=== PATIENT | female | born 1955 | race Caucasian/White ===

== ENCOUNTER 2019-02-11 05:54 | Inpatient (IN) | payer OTHER ==
[2019-01-29 15:54] VITALS: BMI 33.5
[2019-02-11] MEDS ORDERED: oxyCODONE HCL 10 MG SUSTAINED ACTING TABLET PO ONE (07:02)
[2019-02-11] MEDS ORDERED: GABAPENTIN 300 MG CAPSULE (FP) PO ONE (07:02)
[2019-02-11] MEDS ORDERED: TRANEXAMIC ACID 1000 MG/10 ML VIAL IVPUSH ONE (07:02)
[2019-02-11] MEDS ORDERED: CELECOXIB 200 MG CAPSULE PO ONE (07:02)
[2019-02-11] MEDS ORDERED: CEFAZOLIN 2 GM in DEXTROSE 5%-WATER - 50 ML IVPB ONE (07:02)
[2019-02-11] MEDS ORDERED: PANTOPRAZOLE 40 MG TABLET (FP) PO ONE (07:03)
[2019-02-11] MEDS ORDERED: BUPIVACAINE LIPOSOME/PF (EXPAREL) 266 MG/20 ML VIAL ONE (07:29)
[2019-02-11] MEDS ORDERED: MIDAZOLAM HCL 2 MG/2 ML SINGLE DOSE VIAL ONE (07:29)
[2019-02-11] MEDS ORDERED: BUPIVACAINE HCL/PF (5 MG/ML) 30 ML VIAL IJ ONE (07:30)
[2019-02-11] MEDS ORDERED: VANCOMYCIN 1,000 MG VIAL (RESTRICTED TO ID ONLY) ONE (07:46)
[2019-02-11] MEDS ORDERED: ceFAZolin SODIUM 1 GM VIAL ONE ×2 (07:46→08:49)
--- NOTE | 2019-02-11 07:48 | HP ---
Admitting History and Physical - Admission Chief Complaint: left knee osteoarthritis x years History of Present Illness: 63 year old female presents today in regard to her left knee. Longstanding history of left knee osteoarthritis. Patient complains of pain, difficulty ambulating, limited ROM and difficulty completing activities of daily living. Patient has failed conservative treatment options including PO medications, injections, exercise programs and activity modifications. At this point, patient would like to proceed with surgical intervention - left total knee arthroplasty, MAKOplasty. History Source: Patient - Past Medical History Cardiovascular: Yes: CAD, HTN, Hyperlipdemia Pulmonary: Yes: Asthma Gastrointestinal: Yes: GERD Rheumatology: Yes: Gout ENT: Yes: Other (seasonal allergies) - Past Surgical History Additional Past Surgical History: See written history & physical. - Smoking History Smoking history: Former smoker Have you smoked in the past 12 months: No If you are a former smoker, when did you quit?: 2010 - Alcohol/Substance Use Hx Alcohol Use: No Home Medications - Allergies Allergies/Adverse Reactions: Allergies Allergy/AdvReac Type Severity Reaction Status Date / Time moxifloxacin [From Avelox] Allergy Severe Difficulty Verified 01/29/19 15:16 Breathing mushroom Allergy Severe Rash Verified 01/29/19 15:17 Penicillins Allergy Unknown Verified 01/29/19 15:16 - Home Medications Home Medications: Ambulatory Orders Aspirin [Ecotrin] 81 mg PO HS 01/29/19 Bisoprolol Fumarate [Zebeta (Nf) -] 10 mg PO DAILY 01/29/19 Clopidogrel Bisulfate [Plavix] 75 mg PO DAILY 01/29/19 Colchicine 0.6 mg PO HS 01/29/19 Ezetimibe [Zetia] 10 mg PO HS 01/29/19 Fluticasone/Vilanterol [Breo Ellipta 200-25 Mcg INH] 1 each IH DAILY 01/29/19 Isosorbide Mononitrate [Imdur -] 60 mg PO DAILY 01/29/19 Montelukast Sodium [Singulair] 10 mg PO HS 01/29/19 Oxymetazoline HCl [Nasal [place]] 30 ml NS DAILY PRN 01/29/19 Pantoprazole Sodium [Protonix] 40 mg PO DAILY 01/29/19 Review of Systems - Review of Systems Musculoskeletal: reports: Crepitus (left knee), Decreased ROM (left knee), Joint Pain (left knee), Joint Swelling (left knee) Physical Examination Vital Signs: Vital Signs Temperature 98.4 F 02/11/19 06:52 Pulse Rate 58 L 02/11/19 06:52 Respiratory Rate 18 02/11/19 06:52 Blood Pressure 119/66 02/11/19 06:52 O2 Sat by Pulse Oximetry (%) Constitutional: Yes: Well Nourished, No Distress Eyes: Yes: Conjunctiva Clear HENT: Yes: Atraumatic Neck: Yes: Supple Cardiovascular: Yes: Regular Rate and Rhythm Respiratory: Yes: Regular Gastrointestinal: Yes: Soft ...Rectal Exam: Yes: Deferred Musculoskeletal: Yes: Joint Stiffness (left knee), Joint Swelling (left knee) Assessment/Plan 63 year old female presents today in regard to her left knee. Longstanding history of left knee osteoarthritis. Patient complains of pain, difficulty ambulating, limited ROM and difficulty completing activities of daily living. Patient has failed conservative treatment options including PO medications, injections, exercise programs and activity modifications. At this point, patient would like to proceed with surgical intervention - left total knee arthroplasty, MAKOplasty. Pros, cons, risks, benefits and alternatives of a left total knee arthroplasty, MAKOplasty were discussed with the patient at length. Patient confirms her understanding and consents to proceed with a left total knee arthroplasty, MAKOplasty.
[2019-02-11] MEDS ORDERED: PROPOFOL 20 ML ONE ×4 (08:02→11:17)
[2019-02-11] MEDS ORDERED: SUCCINYLCHOLINE CHLORIDE 200 MG/10 ML VIAL ONE (08:02)
[2019-02-11] MEDS ORDERED: ONDANSETRON 4 MG/2 ML VIAL ONE (08:49)
[2019-02-11] MEDS ORDERED: DEXAMETHASONE SOD PHOSPHATE 4 MG/1 ML VIAL ONE (08:49)
[2019-02-11] MEDS ORDERED: TRANEXAMIC ACID 1000 MG/10 ML VIAL ONE (09:01)
[2019-02-11] MEDS ORDERED: VANCOMYCIN 1,000 MG VIAL (RESTRICTED TO ID ONLY) IVPB ONE ×2 (09:16→10:44)
[2019-02-11] MEDS ORDERED: TRANEXAMIC ACID 1000 MG/10 ML VIAL IVPB ONE ×2 (09:17→10:44)
[2019-02-11] MEDS ORDERED: KETOROLAC TROMETHAMINE 30 MG/1 ML VIAL ONE (11:51)
[2019-02-11] MEDS ORDERED: traMADol HCL 50 MG TABLET ONE (11:51)
[2019-02-11] MEDS ORDERED: ACETAMINOPHEN INJECTION 100 ML IVPB ONE (11:52)
[2019-02-11] MEDS ORDERED: KETOROLAC TROMETHAMINE 30 MG/1 ML VIAL IVPUSH ONE (11:55)
--- NOTE | 2019-02-11 11:56 | OP ---
Operative Note - Note: Operative Date: 02/11/19 Pre-Operative Diagnosis: Left knee OA Operation: Left DEBORAH TKA Post-Operative Diagnosis: Same as Pre-op Surgeon: Roman Blunt Embroidery Worker: Tanvi Diana Anesthesia: Spinal Estimated Blood Loss (mls): 100
[2019-02-11] MEDS ORDERED: ONDANSETRON 4 MG/2 ML VIAL IVPUSH PRN ×2 (11:58→12:13)
[2019-02-11] MEDS ORDERED: PROMETHAZINE HCL 25 MG/1 ML VIAL IVPUSH PRN (11:58)
[2019-02-11] MEDS ORDERED: oxyCODONE HCL 5 MG TABLET PO PRN (11:58)
[2019-02-11] MEDS ORDERED: ACETAMINOPHEN 325 MG TABLET (FP) PO SCH (12:00)
[2019-02-11] MEDS ORDERED: ACETAMINOPHEN 1000 MG/100 ML VIAL (NON FORMULARY) IVPB ONE ×2 (12:00→12:12)
[2019-02-11] MEDS ORDERED: MAGNESIUM HYDROX 2400MG/30ML ORAL SUSPENSION 30 ML CUP PO PRN (12:13)
[2019-02-11] MEDS ORDERED: traMADol HCL 50 MG TABLET PO ONE (12:15)
[2019-02-11] MEDS ORDERED: LACTATED RINGERS SOLUTION 1,000 ML IV SCH (12:15)
[2019-02-11] MEDS: ACETAMINOPHEN 325 MG TABLET (FP) PO SCH (18:09)
[2019-02-11] MEDS: KETOROLAC TROMETHAMINE 30 MG/1 ML VIAL IVPUSH SCH ×2 (18:10→23:59)
[2019-02-11] MEDS: traMADol HCL 50 MG TABLET PO SCH (18:11)
[2019-02-11] MEDS: CEFAZOLIN 2 GM/D5W 2 GM/50 ML ML IVPB SCH (18:57)
[2019-02-11] MEDS ORDERED: DEXAMETHASONE SOD PHOSPHATE 10 MG/1 ML VIAL IVPB ONE (20:00)
[2019-02-11] MEDS: COLCHICINE 0.6 MG TABLET (FP) PO SCH (21:01)
[2019-02-11] MEDS: CELECOXIB 200 MG CAPSULE PO SCH (21:01)
[2019-02-11] MEDS: SENNOSIDES/DOCUSATE COMBO (SENNA PLUS) TABLET (UD) PO SCH (21:02)
[2019-02-11] MEDS: ASCORBIC ACID 500 MG TABLET (FP) PO SCH (21:02)
[2019-02-11] MEDS: GABAPENTIN 300 MG CAPSULE (FP) PO SCH (21:02)
[2019-02-11] MEDS: MONTELUKAST NA 10 MG TABLET PO SCH (21:02)
[2019-02-11] MEDS: RANITIDINE HCL 150 MG TABLET (FP) PO SCH (21:02)
[2019-02-11] MEDS: oxyCODONE HCL 10 MG SUSTAINED ACTING TABLET PO SCH (21:03)
[2019-02-11] MEDS: EZETIMIBE 10 MG TABLET (FP) PO SCH (21:03)
[2019-02-11] MEDS ORDERED: PATIENT'S OWN MEDICATION (NON-FORMULARY) (Colchicine [Colchicine] 0.6 MG) PO SCH (22:00)
[2019-02-12] MEDS: traMADol HCL 50 MG TABLET PO SCH ×3 (00:01→12:40)
[2019-02-12] MEDS: CEFAZOLIN 2 GM/D5W 2 GM/50 ML ML IVPB SCH (01:30)
[2019-02-12] MEDS: KETOROLAC TROMETHAMINE 30 MG/1 ML VIAL IVPUSH SCH (06:02)
[2019-02-12] MEDS: ACETAMINOPHEN 325 MG TABLET (FP) PO SCH ×4 (06:03→18:49)
[2019-02-12 07:56] LABS: ANION GAP 5 MMOL/L (8-16); BLOOD UREA NITROGEN 20 mg/dl (7-18); CALCIUM 9.3 mg/dl (8.5-10); CHLORIDE 105 mmol/L (98-107); CO2 25 mmol/L (21-32); CREATININE 0.7 mg/dl (0.55-1.3); GLUCOSE,RANDOM 134 mg/dl (74-106); POTASSIUM 4.6 mmol/L (3.5-5.1); SODIUM 135 mmol/L (136-145)
[2019-02-12 07:57] LABS: HEMOGLOBIN 11.9 GM/dl (10.7-15.3); MCH 29.9 pg (25.7-33.7); MCHC 34.1 g/dl (32.0-36.0); MEAN CELL VOLUME 87.8 fl (80-96); MEAN PLT VOLUME 10.4 fl (7.5-11.1); PLATELET COUNT 273 K/MM3 (134-434); RBC 3.99 M/mm3 (3.60-5.2); RDW 13.5 % (11.6-15.6); WHITE BLOOD COUNT 10.5 K/mm3 (4.0-10.8)
[2019-02-12] MEDS ORDERED: PANTOPRAZOLE 40 MG TABLET (FP) PO SCH (10:00)
[2019-02-12] MEDS: oxyCODONE HCL 10 MG SUSTAINED ACTING TABLET PO SCH (10:20)
[2019-02-12] MEDS: GABAPENTIN 300 MG CAPSULE (FP) PO SCH (10:20)
[2019-02-12] MEDS: ASCORBIC ACID 500 MG TABLET (FP) PO SCH ×2 (10:21→21:49)
[2019-02-12] MEDS: MULTIVITAMINS (DAILY MVI) TABLET (FP) PO SCH (10:21)
[2019-02-12] MEDS: RANITIDINE HCL 150 MG TABLET (FP) PO SCH ×2 (10:21→21:49)
[2019-02-12] MEDS: ISOSORBIDE MONONITRATE 60 MG TAB.SR.24H (FP) PO SCH (10:22)
[2019-02-12] MEDS: SENNOSIDES/DOCUSATE COMBO (SENNA PLUS) TABLET (UD) PO SCH ×2 (10:22→21:49)
[2019-02-12] MEDS: ASPIRIN 325 MG TABLET PO SCH (11:02)
[2019-02-12] MEDS: CLOPIDOGREL BISULFATE 75 MG TABLET (FP) PO SCH (11:02)
[2019-02-12] MEDS: PATIENT'S OWN MEDICATION (NON-FORMULARY) (Fluticasone/Vilanterol [Breo Ellipta 200-25 Mcg IH SCH (12:39)
[2019-02-12] MEDS: BISOPROLOL FUMARATE 10 MG PO SCH (12:39)
[2019-02-12] MEDS: CELECOXIB 200 MG CAPSULE PO SCH ×2 (12:40→21:49)
[2019-02-12] MEDS ORDERED: PT OWN MED DRAWER 7, Y5N ONE (12:46)
--- NOTE | 2019-02-12 15:51 | PN ---
Progress Note (short form) - Note Progress Note: S: Pt. oob in a chair. no c/o. Feels her leg is buckling while weight bearing O: VAS 0/10 A/P: POD#1 s/p left tkr with adductor canal block and selective tibial nerve block 1. knee instability: probably due to adductor canal block with exparel. Muscle tone should return in 2-3 days. Knee immobilizer while OOB, ambulating. 2. pain very well controlled. D/Cd oxycontin, gabapentin and tramadol
[2019-02-12] MEDS: COLCHICINE 0.6 MG TABLET (FP) PO SCH (21:49)
[2019-02-12] MEDS: MONTELUKAST NA 10 MG TABLET PO SCH (21:49)
[2019-02-12] MEDS: EZETIMIBE 10 MG TABLET (FP) PO SCH (21:50)
[2019-02-13] MEDS: ACETAMINOPHEN 325 MG TABLET (FP) PO SCH ×4 (02:58→18:11)
[2019-02-13] MEDS: MAG HYDROX/AL HYDROX/SIMETH 30 ML UNIT-DOSE CUP PO PRN (05:51)
[2019-02-13] MEDS: oxyCODONE HCL 5 MG TABLET PO PRN ×2 (05:52→09:14)
[2019-02-13 08:25] LABS: HEMATOCRIT 33.5 % (32.4-45.2); HEMOGLOBIN 10.9 GM/dl (10.7-15.3); MCH 28.6 pg (25.7-33.7); MCHC 32.5 g/dl (32.0-36.0); MEAN CELL VOLUME 87.9 fl (80-96); MEAN PLT VOLUME 9.6 fl (7.5-11.1); PLATELET COUNT 231 K/MM3 (134-434); RBC 3.81 M/mm3 (3.60-5.2); WHITE BLOOD COUNT 7.4 K/mm3 (4.0-10.8)
[2019-02-13] MEDS ORDERED: PT OWN MED DRAWER 7, Y5N ONE (09:10)
[2019-02-13] MEDS: RANITIDINE HCL 150 MG TABLET (FP) PO SCH ×2 (09:12→21:13)
[2019-02-13] MEDS: CELECOXIB 200 MG CAPSULE PO SCH ×2 (09:12→21:12)
[2019-02-13] MEDS: ASCORBIC ACID 500 MG TABLET (FP) PO SCH ×2 (09:13→21:13)
[2019-02-13] MEDS: MULTIVITAMINS (DAILY MVI) TABLET (FP) PO SCH (09:13)
[2019-02-13] MEDS: SENNOSIDES/DOCUSATE COMBO (SENNA PLUS) TABLET (UD) PO SCH ×2 (09:13→21:12)
[2019-02-13] MEDS: CLOPIDOGREL BISULFATE 75 MG TABLET (FP) PO SCH (09:14)
[2019-02-13] MEDS: ISOSORBIDE MONONITRATE 60 MG TAB.SR.24H (FP) PO SCH (09:14)
[2019-02-13] MEDS: BISOPROLOL FUMARATE 10 MG PO SCH (09:14)
[2019-02-13] MEDS: PATIENT'S OWN MEDICATION (NON-FORMULARY) (Fluticasone/Vilanterol [Breo Ellipta 200-25 Mcg IH SCH (09:14)
[2019-02-13] MEDS: ASPIRIN 325 MG TABLET PO SCH (09:14)
[2019-02-13] MEDS: COLCHICINE 0.6 MG TABLET (FP) PO SCH (21:12)
[2019-02-13] MEDS: MONTELUKAST NA 10 MG TABLET PO SCH (21:13)
[2019-02-13] MEDS: EZETIMIBE 10 MG TABLET (FP) PO SCH (21:13)
[2019-02-14] MEDS: ACETAMINOPHEN 325 MG TABLET (FP) PO SCH ×3 (00:11→06:20)
[2019-02-14] MEDS: MAG HYDROX/AL HYDROX/SIMETH 30 ML UNIT-DOSE CUP PO PRN (06:20)
[2019-02-14] MEDS: oxyCODONE HCL 5 MG TABLET PO PRN (07:15)
--- NOTE | 2019-02-14 08:35 | PN ---
Progress Note (short form) - Note Progress Note: Pt seen and examined. Doing well. Block resolving. Had large BM. Feels better AVSS Selected Entries 02/14/19 02/14/19 05:54 05:58 Temperature 97.7 F Pulse Rate 73 Respiratory 17 Rate Blood Pressure 133/64 O2 Sat by Pulse 98 Oximetry (%) Oxygen Delivery Room Air Method Laboratory Tests 02/12/19 02/12/19 02/13/19 07:06 07:06 07:35 WBC 10.5 7.4 Hgb 11.9 10.9 Hct 35.0 33.5 Plt Count 273 231 Sodium 135 L Potassium 4.6 Chloride 105 Carbon Dioxide 25 Anion Gap 5 L BUN 20 H Creatinine 0.7 Creat Clearance w eGFR 84.25 Random Glucose 134 H Calcium 9.3 Gen: NAD LLE: c/d/i, NVID A/P s/p L TKA, prolonged femoral block and motor weakness (resolving) D/C home today
--- NOTE | 2019-02-14 08:42 | DS ---
Physical Examination Vital Signs: Vital Signs Temperature 97.7 F 02/14/19 05:54 Pulse Rate 73 02/14/19 05:54 Respiratory Rate 17 02/14/19 05:54 Blood Pressure 133/64 02/14/19 05:54 O2 Sat by Pulse Oximetry (%) 98 02/14/19 05:58 Labs: CBC, BMP 02/13/19 07:35 02/12/19 07:06 Discharge Summary Reason For Visit: LEFT KNEE OSTEOARTHRITIS Current Active Problems Osteoarthritis of left knee (Acute) Procedures: Principal: left andrew TKA Hospital Course: Admitted for elective surgery. Procedure performed without complications. Pt received postoperative antibiotic prophylaxis and DVT ppx. Ambulated with physical therapy. Stable for discharge home with outpatient followup. Condition: Stable - Instructions Diet, Activity, Other Instructions: Dr. Blunt - Knee Replacement Instructions Keep the Aquacel dressing on until removed by Dr. Blunt in 10-14 days - it is antibacterial and waterproof and you can shower with it on. Call the office for a follow-up appointment with Dr. Blunt FridayFEBRUARY 24. [phone] Take one Aspirin 325mg daily for 6 weeks to prevent blood clots in your legs. After 6 weeks resume your preop dose of 81mg daily. Resume taking your Plavix as per your preop dose. Take one Pantoprazole 40mg daily for 6 weeks to protect against heartburn and ulcers. Take Cephalexin (antibiotic) 3x/day for 10 days to help prevent skin infection. Take a multivitamin, stool softener, and extra Vitamin C supplement daily. For pain: *Mild pain (1-3/10): Take 1 Tramadol tablet every 4 hours as needed. Moderate pain (4-6/10): Take 1 Tramadol tablet and 1 Percocet tablet every 4 hours as needed. Severe pain (7-10/10): Take 1 Tramadol tablet and 2 Percocet tablets every 4 hours as needed. Activity: You can put as much weight on the operative leg as you want. Right after you get home, there will be a physical therapist coming to your house to help you walk around and bend/straighten your knee. After your follow-up appointment, you will be sent for more intensive outpatient physical therapy which will include machines and equipment that the home therapist cannot bring to your house. Always use a walker or cane for balance and to prevent falls. Expect to see swelling/bruising from the operative site all the way down to your toes. Wear the compression stocking on the operative side during the day to minimize how much swelling there is in your foot/ankle. Don't wear the stocking at night. You don't have to wear a stocking on the other side. Disposition: [facility]NS/HOME HEALTH CARE - Home Medications Comprehensive Discharge Medication List: Ambulatory Orders RX: Bisoprolol Fumarate [Zebeta (Nf) -] 10 mg PO DAILY 01/29/19 RX: Clopidogrel Bisulfate [Plavix] 75 mg PO DAILY 01/29/19 RX: Colchicine 0.6 mg PO HS 01/29/19 RX: Ezetimibe [Zetia] 10 mg PO HS 01/29/19 RX: Fluticasone/Vilanterol [Breo Ellipta 200-25 Mcg INH] 1 each IH DAILY RX: Isosorbide Mononitrate [Imdur -] 60 mg PO DAILY 01/29/19 RX: Montelukast Sodium [Singulair] 10 mg PO HS 01/29/19 RX: Oxymetazoline HCl [Nasal [place]] 30 ml NS DAILY PRN 01/29/19 RX: Pantoprazole Sodium [Protonix] 40 mg PO DAILY 01/29/19 Oxycodone HCl/Acetaminophen [Percocet 5-325 mg Tablet] 1 - 2 tab PO Q4H PRN #60 tablet MDD 10 02/14/19 RX: Ascorbic Acid [Vitamin C -] 500 mg PO BID tablet 02/14/19 RX: Aspirin [ASA -] 325 mg PO DAILY@0800 tablet 02/14/19 RX: Cephalexin Monohydrate [Keflex -] 500 mg PO TID #30 capsule 02/14/19 RX: Multivitamins [Multivit ([facility] Formulary)] 1 tab PO DAILY tab 02/14/19 RX: Pantoprazole Sodium [Protonix -] 40 mg PO DAILY #40 tablet.ec 02/14/19 RX: Sennosides/Docusate Sodium [Pericolace -] 2 tablet PO BID tablet 02/14/19 RX: traMADol HCL [Ultram -] 50 mg PO Q4H PRN #42 tablet MDD 6 02/14/19
[2019-02-14] MEDS ORDERED: PT OWN MED DRAWER 7, Y5N ONE (09:55)
[2019-02-14] MEDS: CELECOXIB 200 MG CAPSULE PO SCH (09:57)
[2019-02-14] MEDS: ASPIRIN 325 MG TABLET PO SCH (09:59)
[2019-02-14] MEDS: PATIENT'S OWN MEDICATION (NON-FORMULARY) (Fluticasone/Vilanterol [Breo Ellipta 200-25 Mcg IH SCH (10:00)
[2019-02-14] MEDS: CLOPIDOGREL BISULFATE 75 MG TABLET (FP) PO SCH (10:00)
[2019-02-14] MEDS: BISOPROLOL FUMARATE 10 MG PO SCH (10:00)
[2019-02-14] MEDS: SENNOSIDES/DOCUSATE COMBO (SENNA PLUS) TABLET (UD) PO SCH (10:00)
[2019-02-14] MEDS: RANITIDINE HCL 150 MG TABLET (FP) PO SCH (10:01)
[2019-02-14] MEDS: ISOSORBIDE MONONITRATE 60 MG TAB.SR.24H (FP) PO SCH (10:01)
[2019-02-14] MEDS: MULTIVITAMINS (DAILY MVI) TABLET (FP) PO SCH (10:01)
[2019-02-14] MEDS: ASCORBIC ACID 500 MG TABLET (FP) PO SCH (10:01)
[2019-02-14 10:08] VITALS: BP 110/64; PULSE 68; TEMP 98.1
--- NOTE | 2019-02-15 11:10 | PATH ---
Surgical Pathology Report Patient Name: ANDRÉS NUNEZ Med. Rec. #: [id number] /Age/Gender: 1955 (Age: 63) / F Account: [id number] Location: [facility] MED-SURG Taken: 02/11/2019 Received: 02/11/2019 Reported: 02/15/2019 Physicians: Roman Blunt M.D. Specimen(s) Received LEFT KNEE BONE Clinical History Left knee osteoarthritis Final Diagnosis BONE AND SOFT TISSUE, LEFT KNEE, REPLACEMENT: DEGENERATIVE JOINT DISEASE. Electronically Signed Leon Luz M.D. Gross Description Received in formalin labeled "left knee bones," is an 11.0 x 9.5 x 2.0 cm aggregate of multiple portions of bone and soft tissue. The tibial plateau measures 8.0 x 5.1 x 1.5 cm. There is a 2.8 cm in greatest dimension area of eburnation present. Remaining articular surfaces are trejo-yellow and diffusely granular. The underlying trabecular bone is yellow and hard. Reconciliation Manager sections are submitted in one cassette, following decalcification. /02/12/2019 [facility]02/12/2019
--- NOTE | 2019-02-18 11:47 | SPEC ---
DATE OF OPERATION: 02/11/2019 PREOPERATIVE DIAGNOSIS: Left knee osteoarthritis. POSTOPERATIVE DIAGNOSIS: Left knee osteoarthritis. PROCEDURE: Left total knee replacement with MAKOplasty robotic navigation. SURGEON: Nicole Dolan MD OIL BURNER: MCKAYLA Camilo ANESTHESIA: Spinal plus sedation. ESTIMATED BLOOD LOSS: 100 mL. COMPLICATIONS: None. DISPOSITION: The patient was transferred to the PACU in stable condition. IMPLANTS USED: [employer] Triathlon size 4 femoral and tibial components, 13-mm posterior stabilized polyethylene component, 32-mm patellar component. INDICATIONS: This is a 63-year-old female who presented to the office complaining of severe left knee pain. She was seen and examined by Dr. Dolan and diagnosed with severe left knee osteoarthritis. Patient was initially non-operatively with injections, medications, and physical therapy, but continued to have severe pain and ambulatory dysfunction. She was therefore indicated for a left total knee replacement. The risks, benefits, and alternatives to the procedure were explained to the patient in great detail, and she elected to proceed with the surgery. DESCRIPTION OF PROCEDURE: On the day of surgery, the patient was taken to the operating room and placed on the OR table. Spinal anesthesia was administered by the anesthesiologist. The patient was then positioned supine on the table and all bony prominences were padded. The knee was then prepped and draped in the usual sterile fashion and intravenous antibiotics were given for infection prophylaxis. A surgical time-out was then performed with the team, and the patients identity, procedure, side, availability of implants, and the administration of antibiotics was confirmed. With the knee flexed, a midline incision was made and carried down through the subcutaneous fat to the underlying retinaculum. A medial parapatellar arthrotomy was performed. This was followed by a subperiosteal dissection of the tissue off the proximal, medial tibia. A portion of fat pad was removed from under the patellar tendon, and a small portion of fat was excised off the distal supracondylar femur. Electrocautery and an Aquamant[employer] bipolar sealing device were used to achieve hemostasis. The knee was then flexed further and the anterior horn of the lateral meniscus was released from the midline. Next, the anterior and posterior cruciate ligaments were transected. Grade 4 changes were noted diffusely throughout the knee. Femoral and tibial checkpoints were then placed in the appropriate location using a mallet. Two parallel bicortical self-drilling pins were placed in the tibial diaphysis after making stab incisions and bluntly dissecting down to bone. Two pins were then placed in the distal supracondylar femur. The [employer] navigation arrays were then attached to both the femoral and tibial pins and the lower extremity was then registered to the robotic navigation device using various joint movements, as well as inputting several dozen reference points. The knee was then taken through a full range of motion with a corrective force applied. Alignment in varus/valgus as well as flexion/extension and soft tissue balance was measured in various positions. The navigation device showed a numerical and graphic representation of the soft tissue balance. The components were repositioned virtually using the software until optimal soft tissue balance was achieved on screen. Once this was accomplished, the final plan was saved and sent to the robot. Self-retaining retractors were then placed at the joint line for exposure and protection of the collateral ligaments. The robot was brought into the sterile field and registered with the navigation device. The robotic arm with attached oscillating saw blade was then used to perform femoral and tibial bone cuts as per the saved software plan. The femoral box cut was made using the appropriately sized manual cutting guide. The knee was then irrigated. Trial components were placed and the knee was taken through a full range of motion to assess soft tissue balance and alignment. The range of motion was found to be excellent and the soft tissue balance was optimal and according to plan. The knee was then put into extension and the patella everted. The synovium around the patella was circumscribed with electrocautery. A caliper was used to measure the patellar thickness and a saw was then used to resect the patella at the chondro-osseous junction. The cut surface was then sized and drilled for the appropriate patellar button, with care taken to medialize it. A trial patella was then placed and the knee was again taken through a full range of motion. The knee was found to have both good balance and good patellar tracking. All of the components were removed except the tibial base plate. The appropriate instrumentation was used to drill and punch the proximal tibia for the keel of the final component. All bony surfaces were then cleaned with pulsatile lavage and dried. Bone cement was then prepared on the back table, and final components were cemented in place in the usual fashion. Extruded cement was removed. The polyethylene trial was placed, the knee was put into extension, and axial pressure was applied for compression while the cement hardened. The patellar button was similarly cemented into place. Once the cement had hardened, the knee was taken through a full range of motion to assess stability, balance, and patellar tracking. This was found to be optimal and the trial polyethylene was exchanged for the appropriately sized real implant. The wound was then thoroughly irrigated with normal saline. A 3-minute dilute Betadine lavage was performed. The knee was again irrigated using a pulsatile lavage device. A periarticular injection was used to locally infiltrate the capsular tissues surrounding the implant and prosthesis. Then No. 1 Polysorb and 0 VLoc 180 barbed sutures were used to close the arthrotomy. Then No. 1 Polysorb and 2-0 VLoc 90 sutures were used in the subcutaneous tissues. Then 4-0 undyed Vicryl and Dermabond skin adhesive was used to close the stab incisions made for the navigation pins. The skin was closed using both 3-0 VLoc 90 suture in a running subcuticular fashion and Dermabond skin adhesive. Once this was completed a sterile Aquacel dressing and compressive Elliot-wrap was applied. The patient was then awakened and taken to the PACU in stable condition. NICOLE DOLAN M.D. [id number]
== END 2019-02-14 12:45 | disposition home health service (06) | DRG 470 ==
LOC: FM/S 05:54
PROVIDERS: ADMIT Student in an Organized Health Care Education/Training Program; ATTEND Student in an Organized Health Care Education/Training Program
PROC: 8E0Y0CZ Robotic Assisted Procedure of Lower Extremity, Open Approach (ICD-10-PCS; 2019-02-11)
PROC: 0SRD0JZ Replacement of Left Knee Joint with Synthetic Substitute, Open Approach (ICD-10-PCS; principal; 2019-02-11 09:12)
DX: M17.12 Unilateral primary osteoarthritis, left knee (principal); I25.10 Atherosclerotic heart disease of native coronary artery without angina pectoris; I10 Essential (primary) hypertension; E78.5 Hyperlipidemia, unspecified; K21.9 Gastro-esophageal reflux disease without esophagitis; M10.9 Gout, unspecified
CPT/HCPCS: 36415; 73560-TC-LT-FY; 80048; 85027; 88304-TC; 88311-TC; 94760; 97116-GP; 97163-GP; J0131; J1100

== ENCOUNTER 2021-03-20 05:54 | Day surgery (SDC) | payer OTHER, BC ==
[2021-03-08 12:50] VITALS: BMI 33.6
[2021-03-20] MEDS ORDERED: CELECOXIB 200 MG CAPSULE PO ONE (06:37)
[2021-03-20] MEDS ORDERED: CEFAZOLIN 2 GM in DEXTROSE 5%-WATER - 50 ML IVPB ONE (06:37)
[2021-03-20] MEDS ORDERED: TRANEXAMIC ACID 1000 MG/10 ML VIAL IVPUSH ONE (06:37)
[2021-03-20] MEDS ORDERED: BUPIVACAINE LIPOSOME/PF (EXPAREL) 266 MG/20 ML VIAL ONE (06:56)
[2021-03-20] MEDS ORDERED: BUPIVACAINE HCL 50 ML ONE ×2 (06:56→08:04)
[2021-03-20] MEDS ORDERED: SODIUM CHLORIDE 0.9% P/F 10 ML VIAL IJ ONE (06:56)
[2021-03-20] MEDS ORDERED: MIDAZOLAM HCL 2 MG/2 ML SINGLE DOSE VIAL ONE ×3 (06:56→12:11)
[2021-03-20] MEDS ORDERED: VANCOMYCIN 1,000 MG VIAL (RESTRICTED TO ID ONLY) ONE ×2 (07:13→07:41)
[2021-03-20] MEDS ORDERED: ceFAZolin SODIUM 1 GM VIAL ONE (07:13)
[2021-03-20] MEDS ORDERED: VANCOMYCIN 1,000 MG in DEXTROSE 5%-WATER - 250 ML IVPB ONE (07:33)
[2021-03-20] MEDS ORDERED: SUCCINYLCHOLINE CHLORIDE 200 MG/10 ML SYRINGE ONE (08:01)
[2021-03-20] MEDS ORDERED: PROPOFOL 20 ML ONE ×2 (08:01→08:38)
[2021-03-20] MEDS ORDERED: ACETAMINOPHEN 500 MG TABLET (FP) PO PRN (10:23)
[2021-03-20] MEDS ORDERED: PANTOPRAZOLE 40 MG TABLET PO PRN (10:23)
[2021-03-20] MEDS ORDERED: morphine SULFATE 4 MG/ML VIAL IVPUSH PRN (10:23)
[2021-03-20] MEDS ORDERED: oxyCODONE HCL 5 MG TABLET PO PRN (10:35)
[2021-03-20] MEDS ORDERED: LACTATED RINGERS SOLUTION 1,000 ML IV SCH (10:45)
[2021-03-20] MEDS: oxyCODONE HCL 5 MG TABLET PO PRN ×4 (11:59→21:41)
[2021-03-20] MEDS: ONDANSETRON 4 MG/2 ML VIAL IVPUSH PRN (13:04)
[2021-03-20] MEDS ORDERED: morphine SULFATE 4 MG/ML VIAL IVPUSH ONE (15:20)
[2021-03-20] MEDS ORDERED: CLINDAMYCIN 900 MG PREMIX IVPB 900 MG/50 ML BAG IVPB SCH (18:00)
[2021-03-20] MEDS ORDERED: VANCOMYCIN 1 GM in D5W (PRE-DOCKED) 1,000 MG/250 ML IVPB ONE (20:00)
[2021-03-20] MEDS ORDERED: PT OWN MED DRAWER 7, Y5N ONE (20:53)
[2021-03-20] MEDS: EZETIMIBE 10 MG TABLET (FP) PO SCH (21:11)
[2021-03-20] MEDS: BUDESONIDE/FORMETEROL FUMARATE 160/4.5 mcg INHALER IH SCH (21:12)
[2021-03-20] MEDS ORDERED: oxyCODONE HCL 10 MG SUSTAINED ACTING TABLET PO SCH (22:00)
[2021-03-21] MEDS: oxyCODONE HCL 5 MG TABLET PO PRN (01:15)
[2021-03-21] MEDS: ONDANSETRON 4 MG/2 ML VIAL IVPUSH PRN (06:18)
[2021-03-21] MEDS ORDERED: morphine SULFATE 4 MG/ML VIAL IVPUSH PRN (07:51)
[2021-03-21] MEDS: KETOROLAC TROMETHAMINE 30 MG/1 ML VIAL IVPUSH PRN ×2 (09:15→14:05)
[2021-03-21] MEDS: ATENOLOL 50 MG TABLET (FP) PO SCH (09:17)
[2021-03-21] MEDS: ASPIRIN 325 MG TABLET PO SCH (09:17)
[2021-03-21] MEDS: ISOSORBIDE MONONITRATE 60 MG TAB.SR.24H (FP) PO SCH (09:17)
[2021-03-21] MEDS: CLOPIDOGREL BISULFATE 75 MG TABLET (FP) PO SCH (09:17)
[2021-03-21] MEDS: BUDESONIDE/FORMETEROL FUMARATE 160/4.5 mcg INHALER IH SCH ×3 (09:18→21:41)
[2021-03-21] MEDS ORDERED: BISOPROLOL FUMARATE 10 MG PO SCH (10:00)
[2021-03-21] MEDS ORDERED: ONDANSETRON 4 MG/2 ML VIAL IVPUSH PRN (13:59)
[2021-03-21] MEDS: EZETIMIBE 10 MG TABLET (FP) PO SCH (21:41)
[2021-03-22] MEDS: ASPIRIN 325 MG TABLET PO SCH (08:23)
[2021-03-22] MEDS: BUDESONIDE/FORMETEROL FUMARATE 160/4.5 mcg INHALER IH SCH (10:06)
[2021-03-22] MEDS: ATENOLOL 50 MG TABLET (FP) PO SCH (10:06)
[2021-03-22] MEDS: CLOPIDOGREL BISULFATE 75 MG TABLET (FP) PO SCH (10:06)
[2021-03-22] MEDS: ISOSORBIDE MONONITRATE 60 MG TAB.SR.24H (FP) PO SCH (10:07)
[2021-03-22 14:10] VITALS: BP 106/45; PULSE 72; TEMP 99.7
== END 2021-03-22 15:44 | disposition home or self-care (01) ==
LOC: FASUSAT 05:54 → EDSTATUS 09:30 → FM/S 10:25 → UNDOADMIN 10:53 → FASUSAT 03-22 15:44
PROVIDERS: ATTEND Orthopaedic Surgery
PROC: 8E0YXBZ Computer Assisted Procedure of Lower Extremity (ICD-10-PCS; 2021-03-20)
PROC: 8E0Y0CZ Robotic Assisted Procedure of Lower Extremity, Open Approach (ICD-10-PCS; 2021-03-20)
PROC: 0SRC0J9 Replacement of Right Knee Joint with Synthetic Substitute, Cemented, Open Approach (ICD-10-PCS; principal; 2021-03-20 08:41)
DX: M17.11 Unilateral primary osteoarthritis, right knee (principal)
CPT/HCPCS: 20985; 27447; C1776; S2900; 73560-TC-RT-FY; 88305-TC; 88311-TC; 94760; 97010-GP; 97116-GP; 97163-GP